=== PATIENT | female | born 1980 | race Caucasian/White ===

== ENCOUNTER 2019-10-20 23:55 | Emergency (ER) | payer MEDICAID ==
[~2019-10-20] VITALS: Ht 157.5 cm; Wt 68.0 kg
[2019-10-21 00:02] VITALS: BP 124/75
--- NOTE | 2019-10-21 00:02 | NUR ---
38 F BIB [facility] FOR PREBOOK DUE TO PT STATING SHE IS 16 WEEKS PREGANT. PT MAKING CONTRADICTORY STATEMENTS THAT SHE HAD HER LMP LAST MONTH, HAD A NEG TEST LAST MONTH, BUT ALSO STATES SHE IS . NKA NO MED HX NO RX
--- NOTE | 2019-10-21 00:12 | NUR ---
PT REFUSING TO GIVE UA. ERMD MADE AWARE
[2019-10-21 00:30] VITALS: BP 124/75
--- NOTE | 2019-10-21 00:30 | NUR ---
Patient discharged with v/s stable. Written and verbal after care instructions given and explained. Patient verbalized understanding. blankmaker BRYCE (BADGE # [id number]) with steady gait. All questions addressed prior to discharge. Advised to follow up with PMD.
== END 2019-10-21 00:30 ==
LOC: MED 23:55
DX: F10.129 Alcohol abuse with intoxication, unspecified (principal); F12.90 Cannabis use, unspecified, uncomplicated; Z02.89 Encounter for other administrative examinations
CPT/HCPCS: 81002; 81025; 99283